=== PATIENT | male | born 1965 | race Caucasian/White ===

== ENCOUNTER 2020-04-26 21:11 | Outpatient (REF) | payer OTHER, SELFPAY ==
[2020-04-26 21:32] LABS: ALT 50 U/L (16-63); AST 29 U/L (15-37); Calculated LDL 68 mg/dL (<100); Cholesterol 137 mg/dL (<200); HDL Cholesterol 40 mg/dL (40-60); Triglyceride 145 mg/dL (<150)
[2020-04-26 21:38] LABS: Hemoglobin A1C 5.6 % (<5.7)
[2020-04-29 10:06] LABS: PSA, Diagnostic 0.2 ng/mL (0.0-3.5)
== END 2020-04-26 21:31 ==
LOC: NCHCN 21:11
PROVIDERS: PCP Nurse Practitioner Family; Visit Provider Nurse Practitioner Family
DX: E78.00 Pure hypercholesterolemia, unspecified (principal); R73.03 Prediabetes; Z12.5 Encounter for screening for malignant neoplasm of prostate
CPT/HCPCS: 80061; 83036; 84153; 84450; 84460

== ENCOUNTER 2022-05-05 13:16 | Outpatient (REF) | payer SELFPAY ==
[2022-05-05 15:19] LABS: Calculated LDL 40 mg/dL (<100); Cholesterol 134 mg/dL (<200); HDL Cholesterol 39 mg/dL (40-60); Triglyceride 279 mg/dL (<150)
[2022-05-05 15:28] LABS: Hemoglobin A1C 5.8 % (<5.7)
== END 2022-05-05 13:17 | disposition home or self-care (01) ==
LOC: NCHCN 13:16
PROVIDERS: PCP Nurse Practitioner Family; Visit Provider Internal Medicine
DX: R73.03 Prediabetes (principal); R06.83 Snoring; F41.8 Other specified anxiety disorders; R12 Heartburn; Z00.00 Encounter for general adult medical examination without abnormal findings
CPT/HCPCS: 80061; 83036

== ENCOUNTER 2023-03-31 08:23 | Outpatient (REF) | payer SELFPAY ==
[2023-04-01 21:56] LABS: ALT 37 U/L (16-63); AST 22 U/L (15-37); Albumin 4.3 g/dL (3.4-5.0); Alkaline Phosphatase 110 U/L (46-116); Anion Gap 9.3 mmol/L (3-11); BUN 18 mg/dL (7-18); Bilirubin, Total 0.5 mg/dL (0.2-1.0); CO2 28.7 mmol/L (21.0-32.0); CREATININE 1.1 mg/dL (0.70-1.30); Calcium 9.1 mg/dL (8.5-10.1); Calculated LDL 48 mg/dL (<100); Chloride 101 mmol/L (98-107); Cholesterol 129 mg/dL (<200); Estimated GFR 76.85 (mL/min/1.73m2); Glucose 147 mg/dL (74-106); HDL Cholesterol 34 mg/dL (40-60); Potassium 3.9 mmol/L (3.5-5.1); Sodium 139 mmol/L (136-145); TSH 1.14 uIU/mL (0.36-3.74); Total Protein 7.8 g/dL (6.4-8.2); Triglyceride 236 mg/dL (<150)
[2023-04-01 22:10] LABS: Vitamin D 25 Total 31.2 ng/mL (30-100)
[2023-04-03 09:32] LABS: HIV-1/2 Ag & Ab Screen Negative (Negative)
[2023-04-05 09:50] LABS: Hepatitis C Ab w Rflx HCV PCR Negative (Negative)
[2023-04-05 11:18] LABS: Lyme Ab w Rflx to Lyme Confirm Negative (Negative)
== END 2023-03-31 08:24 ==
LOC: NCHCN 08:23
PROVIDERS: PCP Nurse Practitioner Family; Visit Provider Nurse Practitioner Family
DX: R53.83 Other fatigue (principal); Z00.00 Encounter for general adult medical examination without abnormal findings; E78.00 Pure hypercholesterolemia, unspecified; Z11.4 Encounter for screening for human immunodeficiency virus [HIV]; Z11.59 Encounter for screening for other viral diseases; E55.9 Vitamin D deficiency, unspecified
CPT/HCPCS: 80053; 80061; 82306; 86803; 87389; 87798; 84443; 86618

== ENCOUNTER 2023-03-31 16:21 | Outpatient (REF) | payer SELFPAY ==
[2023-03-31 16:57] LABS: HCT 42.9 % (40.0-50.0); HGB 14.5 g/dL (13.5-17.5); MCH 30.3 pg (27.0-33.0); MCHC 33.8 % (32.0-36.0); MCV 90 fL (80-95); MPV 11.1 fL (8.0-11.0); Platelet Count 222 10^3/uL (130-400); RBC 4.78 10^6/uL (4.36-5.78); RDW 12.4 % (11.8-14.1); WBC 4.76 10^3/uL (4.4-10.8)
[2023-03-31 17:01] LABS: Hemoglobin A1C 5.9 % (<5.7)
[2023-04-03 23:18] LABS: Anaplasma phagocytophilum Negative (Negative); B. miyamotoi PCR Negative (Negative); Babesia divergens/MO-1 Negative (Negative); Babesia duncani Negative (Negative); Babesia microti Negative (Negative); Ehrlichia chaffeensis Negative (Negative); Ehrlichia ewingii/canis Negative (Negative); Ehrlichia muris eauclairensis Negative (Negative)
== END 2023-03-31 16:22 | disposition home or self-care (01) ==
LOC: NCHCN 16:21
PROVIDERS: PCP Nurse Practitioner Family; Visit Provider Nurse Practitioner Family
DX: R53.83 Other fatigue (principal); Z00.00 Encounter for general adult medical examination without abnormal findings; E78.00 Pure hypercholesterolemia, unspecified; E55.9 Vitamin D deficiency, unspecified; Z11.4 Encounter for screening for human immunodeficiency virus [HIV]; Z11.59 Encounter for screening for other viral diseases
CPT/HCPCS: 80053; 80061; 82306; 85027; 86803; 87389; 87798; 83036; 84443; 86618

== ENCOUNTER 2024-04-28 13:44 | Outpatient (REF) | payer SELFPAY ==
[2024-04-28 15:39] LABS: HCT 43.1 % (40.0-50.0); HGB 14.7 g/dL (13.5-17.5); MCH 30.6 pg (27.0-33.0); MCHC 34.1 % (32.0-36.0); MCV 90 fL (80-95); MPV 10.9 fL (8.0-11.0); Platelet Count 190 10^3/uL (130-400); RDW-SD 39.6 fL; WBC 6.25 10^3/uL (4.4-10.8)
[2024-04-28 15:59] LABS: Hemoglobin A1C 5.9 % (<5.7)
[2024-04-28 16:10] LABS: ALT 48 U/L (16-63); AST 23 U/L (15-37); Albumin 4.2 g/dL (3.4-5.0); Alkaline Phosphatase 124 U/L (46-116); Anion Gap 11.7 mmol/L (3-11); BUN 17 mg/dL (7-18); Bilirubin, Total 0.79 mg/dL (0.2-1.0); CO2 26.3 mmol/L (21.0-32.0); Calcium 9.1 mg/dL (8.5-10.1); Calculated LDL 36 mg/dL (<100); Chloride 102 mmol/L (98-107); Cholesterol 116 mg/dL (<200); Estimated GFR 85.63 (mL/min/1.73m2); Ferritin 167 ng/mL (26-388); Glucose 98 mg/dL (74-106); HDL Cholesterol 37 mg/dL (40-60); Potassium 4.1 mmol/L (3.5-5.1); Sodium 140 mmol/L (136-145); Total Protein 7.7 g/dL (6.4-8.2); Triglyceride 219 mg/dL (<150); Vitamin D 25 Total 31.9 ng/mL (30-100)
[2024-04-28 16:31] LABS: Iron 65 ug/dL (65-175); Total Iron Binding Capacity 314 ug/dL (250-450); Transferrin Sat 21 % (20-55)
== END 2024-04-28 13:45 | disposition home or self-care (01) ==
LOC: NCHCN 13:44
PROVIDERS: PCP Nurse Practitioner Family; Visit Provider Nurse Practitioner Family
DX: E78.00 Pure hypercholesterolemia, unspecified (principal); R73.03 Prediabetes; E55.9 Vitamin D deficiency, unspecified; G25.81 Restless legs syndrome
CPT/HCPCS: 80053; 80061; 82306; 85027; 82728; 83036; 83540; 83550